=== PATIENT | female | born 1990 | race Caucasian/White ===

== ENCOUNTER 2022-03-18 11:00 | Emergency (ER) | payer BC, SELFPAY ==
[2022-03-18] VITALS (9 sets, daily range): BP systolic 106–127; BP diastolic 65–82; PULSE 79–88; RESP 18; TEMP 36.6; O2SAT 96–99; BMI 41.9
--- NOTE | 2022-03-18 11:36 | ED.CHESTPAIN ---
HPI - Chest Pain General Time Seen by Provider: 11:36 Date Seen: 03/18/22 Chief Complaint: Chest Pain Stated Complaint: chest pain/weakness on left side Time Seen by Provider: 03/18/22 11:36 Source: patient, RN notes reviewed and old records reviewed Mode of arrival: ambulatory Limitations: no limitations History of Present Illness HPI narrative: Patient is a very pleasant 31-year-old female what she states is type 1 diabetes who comes to the emergency room with chest pain. Patient states her chest pain started yesterday and is associated with discomfort radiating into the left arm. She states that also radiates into her neck. She notes worsening of the discomfort when she is walking. She has not had any significant shortness of breath. She denies any recent cough cold congestion. She occasionally has lower extremity edema but it has not been worse than normal. Taking a deep breath does not increase her pain. She has not had this discomfort in the past. She does note that this morning her blood sugar dropped and she had to take some glucose tablets. She tells me that it appears to be dropping again in his at 76. She wishes to have something to eat. No nausea or vomiting diarrhea or recent trauma. MD complaint: chest pain Pertinent past history: other (Diabetes) Onset (ago): day(s) Timing of current episode: still present Onset: during rest Risk Factors Coronary artery disease risk factors: diabetes Related Data On Oral Contraceptives: No Home Medications Medication Instructions Recorded Confirmed insulin NPH isoph U-100 human 100 38 - 42 unit subcut BID 03/18/22 03/18/22 unit/mL subcutaneous suspension (Humulin N NPH U-100 Insulin (isophane susp)) insulin aspart U-100 100 unit/mL 14 unit subcut TID 03/18/22 03/18/22 subcutaneous cartridge Allergies Allergy/AdvReac Type Severity Reaction Status Date / Time metformin AdvReac Intermediate nausea, Verified 03/18/22 11:15 vomiting, abdominal pain, diarrhea Review of Systems Status of ROS Reports: 10 or more systems reviewed and unremarkable except as noted in History and below Const Denies: fever, chills or fatigue Eyes Denies: change in vision or blurry vision ENMT Reports: neck pain; Denies: throat pain or difficulty swallowing Cardio Reports: chest pain; Denies: palpitations, edema or shortness of breath with exertion Resp Denies: shortness of breath or pain on inspiration GI Denies: abdominal pain, nausea, vomiting, diarrhea or difficulty swallowing Denies: painful urination or urinary frequency Musculo Reports: neck pain Integ/Breast Denies: rash Neuro Denies: headache or weakness in extremities Endo Denies: fatigue PFSH PFS Social History Smoking Status: Never smoker Do you use any of these nicotine containing products: None Second hand tobacco smoke exposure: No How often do you have a drink containing alcohol: never How often do you have six or more drinks on one occasion: Never AUDIT-C Alcohol total score: 0 Non-prescribed substance use: denies use Exam Narrative Exam Narrative: According to nursing notes patient initially needs educational interpreter. However when I enter the room she says she does not needed educational interpreter and is able to discuss symptoms. Const Vital Signs, click to edit/add: Vital Signs - 24 hr 03/18/22 11:10 03/18/22 12:00 03/18/22 12:30 Temperature 98 F Pulse Rate [Pulse Oximeter] 84 85 Respiratory Rate 18 Blood Pressure [Right Upper Arm] 121/82 127/79 116/72 Pulse Oximetry 99 96 Oxygen Delivery Method Room Air 03/18/22 13:00 Temperature Pulse Rate [Pulse Oximeter] 84 Respiratory Rate Blood Pressure [Right Upper Arm] 116/78 Pulse Oximetry 98 Oxygen Delivery Method Documenting provider has reviewed patient's vital signs: yes Common normals: no apparent distress and oriented x3 Exam limitations: no altered mental status General appearance: cooperative, comfortable and well kempt [facility] Common normals: normocephalic and head/scalp atraumatic Head and scalp: normocephalic and atraumatic Face and sinus: normal facial exam Eye Common normals: PERRL General eye: normal appearance of both eyes Pupil: PERRL Neck & C-Spine Common normals: full ROM, no lymphadenopathy and supple Other: Point tenderness noted over for lateral left aspect of C7/T1. Positive Spurling sign mild on the left Chest Common normals: inspection of chest normal Resp Common normals: normal respiratory effort and clear to auscultation bilaterally Effort & inspection: able to speak in complete sentences Auscultation: clear to auscultation bilaterally Cardio Common normals: regular rate and regular rhythm Rate: regular rate Rhythm: regular rhythm GI Common normals: soft to palpation and non-tender Palpation: soft Common normals: no CVA tenderness Bladder/kidney exam: no CVA tenderness Back & Pelvis Common normals: no CVA tenderness and no thoracic nor lumbar tenderness Extremity Common normals: normal to inspection and no pedal edema Neuro Common normals: oriented x3 Psych Common normals: mental status grossly normal and thought process normal Appearance: well kempt Thought process: normal thought process Skin Common normals: no rashes or lesions noted General skin exam: no rashes or lesions noted Course Course Hospital Course: Patient agrees to have IV placed and blood work to include cardiac enzymes, CBC, comprehensive panel and urinalysis. Will also check D-dimer, chest x-ray and EKG. Reevaluation(s) Reevaluation #1: Patient notes improvement of her discomfort after initial negative troponin. Patient was given Toradol 15 mg IV. Further examination notes pain over posterior lateral cervical spine at C7/T1. Vital Signs Vital signs: Initial Vital Signs Temperature 98 F 03/18/22 11:10 Temperature Source Temporal Artery Scan 03/18/22 11:10 Pulse Rate 84 03/18/22 11:10 Respiratory Rate 18 03/18/22 11:10 Blood Pressure 121/82 03/18/22 11:10 Blood Pressure Mean 95 03/18/22 11:10 Blood Pressure Position Sitting 03/18/22 11:10 Pulse Oximetry 99 03/18/22 11:10 Oxygen Delivery Method 03/18/22 11:10 Vital Signs Temperature 98 F 03/18/22 11:10 Pulse Rate 84 03/18/22 11:10 Respiratory Rate 18 03/18/22 11:10 Blood Pressure 121/82 03/18/22 11:10 Pulse Oximetry 99 03/18/22 11:10 Oxygen Delivery Method 03/18/22 11:10 Temperature 98 F 03/18/22 11:10 Pulse Rate 84 03/18/22 13:00 Respiratory Rate 18 03/18/22 11:10 Blood Pressure 116/78 03/18/22 13:00 Pulse Oximetry 98 03/18/22 13:00 Oxygen Delivery Method 03/18/22 11:10 MDM - Chest Pain MDM Narrative Medical decision making narrative: 1. Chest pain-troponins are negative x2 and EKGs are reassuring with no evidence of acute ST or T-wave changes. Aspirin 324 mg p.o. was given in the ED while awaiting these tests. 2. Cervical spine discomfort-I believe this is likely the source of patient's chest and left arm discomfort. Spurling sign was positive and patient has localized tenderness on the cervical spine. Patient does agree that in the past she has had upper back and neck spasm. We demonstrated stretches today and suggest icing to this area as well. Follow-up with primary MD if not improving. 3. Type 1 diabetes-patient sees physician outside of this area every 3 months. Last seen 1 week ago. 4. Disposition-home. Recommend returning as needed for worsening symptoms. Medical Records Data Attestation: I reviewed the patient's medical records. Lab Data Attestation: I reviewed the patient's lab results. Labs: Lab Results 03/18/22 03/18/22 03/18/22 Range/Units 11:50 11:55 11:55 WBC 9.11 (4.50-11.00) K/uL RBC 4.94 (4.00-5.20) m/uL Hgb 14.0 (12.0-16.0) gm/dL Hct 40.1 (33.0-51.0) % MCV 81 (80-100) fL MCH 28 (26-34) pg MCHC 35 (32-36) gm/dL RDW Coeff of Shaun 13.0 (11.5-15.5) % Plt Count 326 (140-440) K/uL Neut % (Auto) 67.0 (42.0-72.0) % Lymph % (Auto) 22.9 (20-44) % [place] % (Auto) 7.5 (0.0-11.0) % Eos % (Auto) 2.1 (0.0-7.0) % Baso % (Auto) 0.2 (0.0-3.0) % Neut # (Auto) 6.10 (1.7-7.0) K/uL Lymph # (Auto) 2.09 (0.90-2.90) K/uL [place] # (Auto) 0.70 (0.00-0.90) K/UL Eos # (Auto) 0.19 (0.00-0.50) K/uL Baso # (Auto) 0.02 (0.00-0.30) K/uL Abs Immat Gran (auto) 0.03 (0.00-0.30) K/uL D-Dimer Quant (PE/DVT) < 0.27 (0.00-0.50) ug/ml Sodium (135-149) mmol/L Potassium (3.6-5.1) mmol/L Chloride (96-114) mmol/L Carbon Dioxide (20-32) mmol/L BUN (5-24) mg/dL Creatinine (0.5-1.5) mg/dL Estimated Creat Clear Estimated GFR ml/min Glucose (60-115) mg/dL Calcium (8.4-10.6) mg/dL Total Bilirubin (0.1-1.5) mg/dL AST (12-35) U/L ALT (4-35) U/L Alkaline Phosphatase (40-150) U/L Troponin I (0.01-0.04) ng/mL Total Protein (6.0-8.3) g/dL Albumin (3.3-5.0) g/dL SARS-CoV-2 (PCR) Negative SARS-CoV-2 (Negative) Influenza Type A (PCR) Negative PCR FLU A (Negative) Influenza Type B (PCR) Negative PCR FLU B (Negative) POC Troponin I (0.01-0.04) ng/ml 03/18/22 03/18/22 Range/Units 11:55 13:40 WBC (4.50-11.00) K/uL RBC (4.00-5.20) m/uL Hgb (12.0-16.0) gm/dL Hct (33.0-51.0) % MCV (80-100) fL MCH (26-34) pg MCHC (32-36) gm/dL RDW Coeff of Shaun (11.5-15.5) % Plt Count (140-440) K/uL Neut % (Auto) (42.0-72.0) % Lymph % (Auto) (20-44) % [place] % (Auto) (0.0-11.0) % Eos % (Auto) (0.0-7.0) % Baso % (Auto) (0.0-3.0) % Neut # (Auto) (1.7-7.0) K/uL Lymph # (Auto) (0.90-2.90) K/uL [place] # (Auto) (0.00-0.90) K/UL Eos # (Auto) (0.00-0.50) K/uL Baso # (Auto) (0.00-0.30) K/uL Abs Immat Gran (auto) (0.00-0.30) K/uL D-Dimer Quant (PE/DVT) (0.00-0.50) ug/ml Sodium 137 (135-149) mmol/L Potassium 3.7 (3.6-5.1) mmol/L Chloride 105 (96-114) mmol/L Carbon Dioxide 26 (20-32) mmol/L BUN 17 (5-24) mg/dL Creatinine 0.4 L (0.5-1.5) mg/dL Estimated Creat Clear 177.59 Estimated GFR 136 ml/min Glucose 104 (60-115) mg/dL Calcium 8.7 (8.4-10.6) mg/dL Total Bilirubin 0.4 (0.1-1.5) mg/dL AST 45 H (12-35) U/L ALT 57 H (4-35) U/L Alkaline Phosphatase 116 (40-150) U/L Troponin I < 0.01 L (0.01-0.04) ng/mL Total Protein 7.9 (6.0-8.3) g/dL Albumin 4.3 (3.3-5.0) g/dL SARS-CoV-2 (PCR) (Negative) Influenza Type A (PCR) (Negative) Influenza Type B (PCR) (Negative) POC Troponin I 0.00 L (0.01-0.04) ng/ml Imaging Data Chest x-ray: Attestation: I have reviewed the pertinent imaging results. My impression: No acute infiltrates or widening of the mediastinum. Radiologist's impression: Lungs: Clear lungs. No consolidation. Pleura: No pleural effusion or pneumothorax. Heart and Mediastinum: The cardiomediastinal silhouette is normal. The vessels are unremarkable. Bones: Unremarkable. IMPRESSION: No acute cardiopulmonary disease. ECG Data Attestation: I personally reviewed and interpreted this ECG as follows: ECG interpretation date: 03/18/22 Interpretation: EKG 1. By my read shows sinus rhythm at a rate of 81. Normal QT corrected. No acute ST or T-wave changes. EKG 2. By my read shows sinus rhythm at a rate of 86. No acute ST or T-wave changes. Discharge Plan Discharge Clinical Impression: Atypical chest pain Patient Disposition: Home, Self-Care Condition: Improved Additional Instructions: Gentle stretching to the neck. Icing to area of discomfort. You may use ibuprofen as needed for discomfort. Seek medical attention for worsening symptoms. Return to the ER as needed. Prescriptions: No Action Humulin N NPH U-100 Insulin 100 unit/mL suspension 38 - 42 unit subcut BID Label Comments: 38 Units AM dose 42 Units PM dose insulin aspart U-100 100 unit/mL cartridge 14 unit subcut TID Label Comments: 14 units + sliding scale adjustment TID Follow Up/Referrals: Olivia Dubose DO [Primary Care Provider] - Stand Alone Forms: MyHealth Info Instructions
--- NOTE | 2022-03-18 11:43 | CRLHL7_ITS ---
For Patients: As a result of the Cures Act, medical imaging exams and procedure reports are released immediately into your electronic medical record. You may view this report before your referring provider. If you have questions, please contact your health care provider. INDICATION: Chest pain. TECHNIQUE: Chest 1 views. COMPARISON: None. FINDINGS: Lungs: Clear lungs. No consolidation. Pleura: No pleural effusion or pneumothorax. Heart and Mediastinum: The cardiomediastinal silhouette is normal. The vessels are unremarkable. Bones: Unremarkable. IMPRESSION: No acute cardiopulmonary disease. Dictated by River Alcantar MD @ 03/18/2022 12:40:15 PM (Electronically Signed)
[2022-03-18] MEDS: ASPIRIN 81 MG TAB.CHEW 324 MG PO (11:44)
[2022-03-18 12:19] LABS: Basophils Absolute Auto 0.02 K/uL (0.00-0.30); Basophils Percent Auto 0.2 % (0.0-3.0); Eosinophils Absolute Auto 0.19 K/uL (0.00-0.50); Eosinophils Percent Auto 2.1 % (0.0-7.0); Hematocrit 40.1 % (33.0-51.0); Immature Granulocytes Abs Auto 0.03 K/uL (0.00-0.30); Lymphocytes Absolute Auto 2.09 K/uL (0.90-2.90); Lymphocytes Percent Auto 22.9 % (20-44); Mean Corpuscular HGB Conc 35 gm/dL (32-36); Mean Corpuscular Hemoglobin 28 pg (26-34); Mean Corpuscular Volume 81 fL (80-100); Monocytes Percent Auto 7.5 % (0.0-11.0); Platelet Count* 326 K/uL (140-440); Red Blood Count 4.94 m/uL (4.00-5.20); White Blood Count* 9.11 K/uL (4.50-11.00)
[2022-03-18 12:22] LABS: Slide Review Reflex No
[2022-03-18 12:40] LABS: Albumin* 4.3 g/dL (3.3-5.0); Chloride* 105 mmol/L (96-114); Potassium* 3.7 mmol/L (3.6-5.1); Sodium* 137 mmol/L (135-149)
[2022-03-18 12:42] LABS: Creatinine* 0.4 mg/dL (0.5-1.5); Est. Creatinine Clearance* 177.59; Estimated Glomerular Filt Rate 136 ml/min
[2022-03-18 12:43] LABS: Alanine Aminotransferase* 57 U/L (4-35); Alkaline Phosphatase* 116 U/L (40-150); Aspartate Amino Transferase* 45 U/L (12-35); Bilirubin Total* 0.4 mg/dL (0.1-1.5); Blood Urea Nitrogen* 17 mg/dL (5-24); Carbon Dioxide* 26 mmol/L (20-32); Glucose* 104 mg/dL (60-115); Total Protein* 7.9 g/dL (6.0-8.3)
[2022-03-18 12:44] LABS: Calcium* 8.7 mg/dL (8.4-10.6)
[2022-03-18 12:47] LABS: D Dimer Quantitative* < 0.27 ug/ml (0.00-0.50)
[2022-03-18 12:55] LABS: PCR FLU A Negative PCR FLU A (Negative); PCR FLU B Negative PCR FLU B (Negative)
[2022-03-18 13:02] LABS: SARS PCR* Negative SARS-CoV-2 (Negative)
[2022-03-18 13:05] LABS: Troponin I* < 0.01 ng/mL (0.01-0.04)
[2022-03-18] MEDS: KETOROLAC 15 MG/ML inj IVP (13:16)
== END 2022-03-18 15:47 | disposition home or self-care (01) ==
PROVIDERS: Emergency Provider Family Medicine; PCP Family Medicine
DX: R07.9 Chest pain, unspecified (principal); E10.9 Type 1 diabetes mellitus without complications; M54.2 Cervicalgia
CPT/HCPCS: 36415; 71045; 80053; 84484; 85025; 85379; 87631; 93005; 96374; 99284; 99285; A9270; J1885

== ENCOUNTER 2023-07-09 14:38 | Outpatient (CLI) | payer BC, SELFPAY | END 2023-07-09 14:39 | disposition home or self-care (01) | LOC: AMB 07-10 05:45 | PROVIDERS: PCP Family Medicine; Visit Provider Family Medicine | DX: E11.65 Type 2 diabetes mellitus with hyperglycemia (principal) | CPT/HCPCS: A0425; A0427 ==

== ENCOUNTER 2023-07-09 15:04 | Inpatient (IN) | payer BC, SELFPAY ==
[2023-07-09] VITALS (8 sets, daily range): BP systolic 102–123; BP diastolic 66–87; PULSE 98–127; RESP 20–28; TEMP 36.4–36.9; O2SAT 98–100; BMI 42.2; BMI 37.8
--- NOTE | 2023-07-09 15:17 | ED.GENADULT ---
HPI - General Adult General Chief complaint: Diabetic Related Problem Stated complaint: Diabetic ketoacidosis Time Seen by Provider: 07/09/23 15:08 History of Present Illness HPI narrative: This is a pleasant 32-year-old female who was referred to the emergency department today from the urgent care for evaluation of hyperglycemia and suspected diabetic ketoacidosis. She is a type 1 diabetic. According to the urgent care she ran out of her insulin a couple of days ago and then says, ?I can not remember. ? Subsequently, according to the Urgent Care notes it turns out she has been out of her insulin for about a week. She has been sick with nausea, vomiting, dizziness, blurry vision since yesterday. She has also had polydipsia and polyuria. She checked her blood sugar prior to going to the urgent care and it measured at 290. one day earlier this week it measured at 500. Her emesis has been nonbloody. It has been yellow and sour tasting. Is been ongoing for a couple of days. She has also been feeling short of breath. She has had a cold since last Wednesday. Her aunt had COVID. She tested at home today and tested negative within at home test. No fevers. No chest pain. She has had multiple episodes of nonbilious, nonbloody emesis. No diarrhea. No abdominal pain. No swelling in her legs. No rash. She has had previous hysterectomy so cannot be . She ran out of her NPH insulin about a week ago and ran out of her NovoLog incident in of roughly 2 or 3 days ago. She says her normal regimen of her insulin is NPH 40 units in the morning and 44 units in the evening. She takes no log on a sliding scale, typically 22-24 units, but her dose depends on her blood sugar. 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 She does not know her doctor's name. Their phone number is [phone]. She normally gets her insulin through [employer] because they have a special program that makes that affordable for her. She has Blue [employer] insurance but that does not cover her medication. Related Data Home Medications Medication Instructions Recorded Confirmed insulin NPH isoph U-100 human 100 38 - 42 unit subcut BID 03/18/22 07/09/23 unit/mL subcutaneous suspension (Humulin N NPH U-100 Insulin (isophane susp)) insulin aspart U-100 100 unit/mL 14 unit subcut TID 03/18/22 07/09/23 subcutaneous cartridge Allergies Allergy/AdvReac Type Severity Reaction Status Date / Time metformin AdvReac Intermediate nausea, Verified 03/18/22 11:15 vomiting, abdominal pain, diarrhea [facility] Social History Smoking Status: Never smoker Do you use any of these nicotine containing products: None Second hand tobacco smoke exposure: No How often do you have a drink containing alcohol: never How often do you have six or more drinks on one occasion: Never AUDIT-C Alcohol total score: 0 Non-prescribed substance use: denies use Exam Narrative: Exam Narrative: Constitutional: Appears well-developed and well-nourished. Alert. Conversant through an iPad [place] resource protection specialist. Non toxic. HENT: Head: Atraumatic. Nose: Nose normal. Mouth/Throat: Oral mucosa is clear but dry, not desiccated or cracked. no trismus. Pharynx normal. Eyes: Conjunctivae normal. EOM normal. Pupils equal, round, and reactive to light. No scleral icterus. Neck: Normal range of motion. Neck supple. No tracheal deviation present. Cardiovascular: Tachycardic regular rhythm. No gallop. No friction rub. No murmur heard. Symmetric radial artery pulses Pulmonary/Chest: Effort normal. No stridor. No respiratory distress. No wheezes. No rales. No rhonchi . No tenderness. Abdominal: Soft. Bowel sounds normal. No distension. No mass. No tenderness. No rebound. No guarding. No CVA tenderness. Musculoskeletal: RUE: Normal range of motion. No tenderness. No deformity LUE: Normal range of motion. No tenderness. No deformity RLE: Normal range of motion. No edema. No tenderness. No deformity LLE: Normal range of motion. No edema. No tenderness. No deformity Neurological: Alert and oriented to person, place, and time. Normal strength. CN II-VII intact. No sensory deficit. GCS eye subscore is 4. GCS verbal subscore is 5. GCS motor subscore is 6. Normal coordination Skin: Skin is warm and dry. No rash noted. No pallor. Normal capillary refill. Psychiatric: Endorses feeling nervous and anxious. Otherwise is polite. Denies depression Const: Vital Signs, click to edit/add: Vital Signs - 24 hr 07/09/23 15:11 07/09/23 15:26 Temperature 97.6 F Pulse Rate [Pulse Oximeter] 105 H Respiratory Rate 22 Blood Pressure [Le ft Upper Arm] 114/87 Pulse Oximetry 100 100 Oxygen Delivery Me thod Room Air Course Vital Signs Vital signs: Initial Vital Signs Temperature 97.6 F 07/09/23 15:11 Temperature Source Temporal Artery Scan 07/09/23 15:11 Pulse Rate 105 H 07/09/23 15:11 Respiratory Rate 22 07/09/23 15:11 Blood Pressure 114/87 07/09/23 15:11 Blood Pressure Mean 96 07/09/23 15:11 Blood Pressure Position Supine 07/09/23 15:11 Pulse Oximetry 100 07/09/23 15:11 Oxygen Delivery Method Room Air 07/09/23 15:11 Vital Signs Temperature 97.6 F 07/09/23 15:11 Pulse Rate 105 H 07/09/23 15:11 Respiratory Rate 22 07/09/23 15:11 Blood Pressure 114/87 07/09/23 15:11 Pulse Oximetry 100 07/09/23 15:11 Oxygen Delivery Method Room Air 07/09/23 15:11 Temperature 97.6 F 07/09/23 15:11 Pulse Rate 105 H 07/09/23 15:11 Respiratory Rate 07/09/23 15:11 Blood Pressure 114/87 07/09/23 15:11 Pulse Oximetry 100 07/09/23 15:26 Oxygen Delivery Method Room Air 07/09/23 15:11 Medications Administered Medications: Generic Name Dose Route Start Last Admin Trade Name Freq PRN Reason Stop Dose Admin Insulin Human (Reg)/Sodium Chloride 100 unit in 100 mls @ 11 mls/hr 07/09/23 16:45 07/09/23 16:48 Insulin Inf 100 Unit/100 Ml IVPB 11 unit/hr .Q9H6M MERVAT 11 mls/hr Administration 11 UNIT/HR Insulin Human (Reg)/Sodium Chloride 100 unit in 100 mls @ 5 mls/hr 07/09/23 17:45 07/09/23 18:34 Insulin Inf 100 Unit/100 Ml IVPB 10.5 unit/hr .Q20H MERVAT 10.5 mls/hr Administration Protocol 5 UNIT/HR Discontinued Medications Generic Name Dose Route Start Last Admin Trade Name Noble PRN Reason Stop Dose Admin Sodium Chloride 1,000 mls @ 1,000 mls/hr 07/09/23 15:15 07/09/23 16:02 0.9 % Sodium Chloride 1000 Ml IV 07/09/23 16:14 1,000 mls/hr .Q1H MERVAT Administration Ondansetron HCl 4 mg 07/09/23 16:24 07/09/23 16:49 Ondansetron 2 Mg/Ml Inj IVP 07/09/23 16:25 4 mg ONCE ONE Administration Medical Decision Making MDM Narrative Medical decision making narrative: 32-year-old female with insulin-dependent diabetes referred to the ER today from the urgent care with concern for possible DKA. Shear is ran out of her long-acting insulin about a week ago and her short-acting insulin and a couple of days ago and has symptoms indicative of hyperglycemia including nausea, vomiting, headache, blurry vision, polyuria, polydipsia. Lab workup in the urgent care showed sugar greater than 500, appropriately low sodium at 1:30 a.m.. Fortunately no sign of kidney failure. She also had hyperkalemia. Urinalysis was positive for ketones, glucosuria, and protein but negative for infection. Additional lab work here in the ER shows a acidosis with a pH fairly low at 7.03. PCO2 also low at 31. Suggestive of DKA. Suspect that the trigger for DKA is absence of insulin this week. She simply ran out of meds due to financial reasons. Incidentally she has also had a cold that began 6 days ago, last Wednesday. She tested negative for coronavirus at home. Repeat COVID/influenza/RSV swab here in the ER is positive. She has also had a recent cold and URI. She is not having any cough here. No hypoxia. She is positive for COVID. Symptoms began last Wednesday so would be outside the window for Paxlovid. Lung sounds are clear. No wheezing or bronchospasm. No focal abnormality to suggest pneumonia. Patient has had previous a hysterectomy, so cannot be . Restarted treatment for DKA including IV fluids and insulin drip based on weight. At this point she has blurry vision, nausea, mild headache but normal sensorium and no focal neurologic deficits. No evidence for cerebral edema. Clinically she looks pretty well at the bedside. She will be admitted to the critical care unit for insulin drip, IV fluids. Lab Data Labs: Lab Results 07/09/23 07/09/23 07/09/23 Range/Units 15:21 16:00 16:43 VBG pH 7.035 L* (7.32-7.43) VBG pCO2 31 L (40-50) mmHG VBG pO2 38.9 (25-47) mmHG VBG HCO3 8 L (21-28) mmol/L Sodium 135 (135-149) mmol/L Potassium 6.2 H* (3.6-5.1) mmol/L Chloride 101 (96-114) mmol/L Carbon Dioxide < 5 L* (20-32) mmol/L Anion Gap 29 H (7-15) mEq/L BUN 15 (5-24) mg/dL Creatinine 0.8 (0.5-1.5) mg/dL Estimated Creat Clear 87.99 Estimated GFR 101 ml/min Glucose 547 H* (60-115) mg/dL Lactate 2.6 H (0.5-1.9) mmol/L Calcium 9.2 (8.4-10.6) mg/dL Phosphorus 6.7 H* (2.5-4.5) mg/dL Magnesium 2.3 (1.5-2.6) mg/dL Urine Color Yellow (Yellow) Urine Appearance Clear (Clear) Urine pH 5.0 (5.0-8.5) Ur Specific [place] 1.025 (1.000-1.030) Urine Protein 2+ A (Negative) Urine Glucose (UA) 2+ A (Negative) Urine Ketones 4+ A (Negative) Urine Blood 1+ A (Negative) Urine Nitrite Negative (Negative) Urine Bilirubin 1+ A (Negative) Urine Urobilinogen 0.2 (0.2-1.0) Ur Leukocyte Esterase Negative (Negative) Urine RBC 0-2 (0-2) Urine WBC 0-2 (0-5) Urine WBC Clumps None (None) Ur Squamous Epith Cells None (None-Few) Urine Bacteria Few A (None) SARS-CoV-2 (PCR) POSITIVE SARS-CoV-2 A (Negative) Influenza Type A (PCR) Negative PCR FLU A (Negative) Influenza Type B (PCR) Negative PCR FLU B (Negative) RSV (PCR) Negative PCR RSV (Negative) ECG Data Attestation: I personally reviewed and interpreted this ECG as follows: Interpretation: Sinus tachycardia. Rate 105 MS 136. QRS axis normal axis. Low voltage QRS ST segment/T wave: No ST segment elevation or depression. QTc: 473 Critical Care Time Critical Care Time Critical Care Time: Yes Attestation: The patient required my highest level preparedness to intervene emergently and I personally spent this critical care time directly and personally managing the patient. This critical care time included: Obtaining a history; Examining the patient; Pulse oximetry; Ordering and reviewing of studies; Arranging urgent treatment with development of a management plan; Evaluation of patients response to treatment; Frequent reassessment discussions with other providers. This critical care time was performed to assess and manage the high probability of imminent life-threatening deterioration that could result in multiorgan failure. It was exclusive of separate billable procedures and treating other patients and teaching time. Total Critical Care Time in Minutes: 35 Discharge Plan Discharge Clinical Impression: DKA (diabetic ketoacidosis), COVID-19 Patient Disposition: Admitted As Observation Condition: Guarded
[2023-07-09 15:50] LABS: Appearance Urine Clear (Clear); Bilirubin Urine 1+ (Negative); Blood Urine 1+ (Negative); Color Urine Yellow (Yellow); Glucose Urine 2+ (Negative); Ketones Urine 4+ (Negative); Leukocyte Esterase Urine Negative (Negative); Nitrite Urine Negative (Negative); Protein Urine 2+ (Negative); Specific Gravity Urine 1.025 (1.000-1.030); Urobilinogen Urine 0.2 (0.2-1.0)
[2023-07-09 16:02] LABS: Bacteria Urine Few; RBC Urine 0-2 (0-2); WBC Urine 0-2 (0-5)
[2023-07-09] MEDS: 0.9 % SODIUM CHLORIDE 1000 ml 1,000 ML IV (16:02)
[2023-07-09 16:11] LABS: HCO3 VBG 8 mmol/L (21-28); Lactate* 2.6 mmol/L (0.5-1.9); PCO2 VBG 31 mmHG (40-50); PO2 VBG 38.9 mmHG (25-47)
[2023-07-09 16:14] LABS: pH VBG 7.035 (7.32-7.43)
--- NOTE | 2023-07-09 16:15 | ED.NURSE ---
dr stinson aware of critical labs. pH 7.035, Hco3 8, pCo2-31.
[2023-07-09 16:27] LABS: Chloride* 101 mmol/L (96-114)
[2023-07-09 16:28] LABS: Sodium* 135 mmol/L (135-149)
[2023-07-09 16:30] LABS: Creatinine* 0.8 mg/dL (0.5-1.5); Est. Creatinine Clearance* 87.99; Estimated Glomerular Filt Rate 101 ml/min
[2023-07-09 16:31] LABS: Blood Urea Nitrogen* 15 mg/dL (5-24); Calcium* 9.2 mg/dL (8.4-10.6); Magnesium* 2.3 mg/dL (1.5-2.6)
[2023-07-09 16:37] LABS: Potassium* 6.2 mmol/L (3.6-5.1)
[2023-07-09 16:38] LABS: Anion Gap 29 mEq/L (7-15); Carbon Dioxide* < 5 mmol/L (20-32); Glucose* 547 mg/dL (60-115); Phosphorus* 6.7 mg/dL (2.5-4.5)
[2023-07-09] MEDS: INSULIN INF 100 UNIT/100 ML 100 UNIT/100 ML BAG 11 UNIT IVPB ×2 (16:48→17:45)
[2023-07-09] MEDS: ONDANSETRON 2 MG/ML inj 4 MG IVP ×2 (16:49→21:04)
[2023-07-09 17:26] LABS: PCR FLU A Negative PCR FLU A (Negative); PCR FLU B Negative PCR FLU B (Negative); PCR RSV Negative PCR RSV (Negative); SARS PCR* POSITIVE SARS-CoV-2 (Negative)
--- NOTE | 2023-07-09 17:33 | PC.NURSE ---
Report given to m/s RN. Patient to CCU via wheelchair.
[2023-07-09] MEDS: INSULIN INF 100 UNIT/100 ML 100 UNIT/100 ML BAG 10.5 UNIT IVPB (18:34)
[2023-07-09 18:45] LABS: HCO3 VBG 8 mmol/L (21-28); Lactate* 2.8 mmol/L (0.5-1.9); PCO2 VBG 31 mmHG (40-50); PO2 VBG 30.3 mmHG (25-47)
[2023-07-09 18:51] LABS: Chloride* 109 mmol/L (96-114)
[2023-07-09 18:52] LABS: Potassium* 4.7 mmol/L (3.6-5.1); Sodium* 141 mmol/L (135-149)
[2023-07-09 18:54] LABS: Creatinine* 0.7 mg/dL (0.5-1.5); Est. Creatinine Clearance* 100.55; Estimated Glomerular Filt Rate 119 ml/min; Phosphorus* 5.1 mg/dL (2.5-4.5)
[2023-07-09 18:55] LABS: Blood Urea Nitrogen* 14 mg/dL (5-24); Calcium* 9.1 mg/dL (8.4-10.6); Glucose* 320 mg/dL (60-115); Magnesium* 2.2 mg/dL (1.5-2.6)
[2023-07-09 18:59] LABS: Anion Gap 27 mEq/L (7-15); Carbon Dioxide* < 5 mmol/L (20-32)
[2023-07-09 19:11] LABS: pH VBG 7.008 (7.32-7.43)
[2023-07-09 19:12] LABS: HCG Quantitative* < 2.39 mIU/mL
--- NOTE | 2023-07-09 19:32 | P.IMHP_ITS ---
Hospitalist- H&P: HPI History of Present Illness Time Seen by Provider: 16:45 Date Seen: 07/09/23 Chief complaint: Diabetic ketoacidosis Narrative: Bella Mcdonald is a 32 year old female with DM type 1 who has been sick with vomiting and blurry vision since early this morning. She is [place] speaking, so I spoke with her and her mother, Reanna, with a video parts interpreter. Bella ran out of NPH a week ago and short acting insulin a few days ago. She got her p aycheck today and intended to get insulin refilled today, but started vomiting early this morning. She also feels very weak and has blurry vision, headache and abdominal pain. She notes that her blood sugars have been in the 200-300's recently, since she started having URI symptoms last Wednesday. She has felt congested and has SOB. She denies CP. She had been seeing an school fundraising director in [facility] (the ER record states [place]; she told me [facility]). who prescribed insulin for her. She tells me she last saw the physician a year ago and no longer has access to that physician. Review of Systems Status of ROS: Reports: 10 or more systems reviewed and unremarkable except as noted in History and below Const: Reports: fatigue and malaise; Denies: fever, chills, change in weight or night sweats Eyes: Reports: blurry vision ENMT: Reports: dry mouth and nasal congestion Cardio: Reports: shortness of breath with exertion; Denies: chest pain, palpitations or edema Resp: Reports: shortness of breath; Denies: cough or wheezing GI: Reports: abdominal pain, nausea and vomiting Musculo: Reports: muscle weakness Integ/Breast: Denies: rash Neuro: Reports: headache Endo: Reports: excessive urination, excessive thirst, fatigue and cold intolerance Allergy/Immuno: Denies: wheezing [facility] Medical History (Updated 07/09/23 @ 20:05 by Norma Villa MD) Pre-eclampsia ?O14.90 - Unspecified pre-eclampsia, unspecified trimester (ICD-10) Type 1 diabetes mellitus (~06/2018) ?E10.9 - Type 1 diabetes mellitus without complications (ICD-10) Surgical History (Updated 07/09/23 @ 19:51 by Norma Villa MD) H/O: hysterectomy ?Z90.710 - Acquired absence of both cervix and uterus (ICD-10) Social History (Updated 07/09/23 @ 19:52 by Norma Villa MD) Narrative: Works at [employer]. Never smoker. Drinks alcohol 2-3 times a year. None since . Denies recreational drug use. Smoking Status: Never smoker Do you use any of these nicotine containing products: None Second hand tobacco smoke exposure: No How often do you have a drink containing alcohol: never How often do you have six or more drinks on one occasion: Never AUDIT-C Alcohol total score: 0 Non-prescribed substance use: denies use Meds Home Medications and Allergies Home Medications Medication Instructions Recorded Confirmed Type insulin NPH isoph U-100 human 100 38 - 42 unit subcut BID 03/18/22 07/09/23 History unit/mL subcutaneous suspension (Humulin N NPH U-100 Insulin (isophane susp)) insulin aspart U-100 100 unit/mL 14 unit subcut TID 03/18/22 07/09/23 History subcutaneous cartridge Allergies Allergy/AdvReac Type Severity Reaction Status Date / Time metformin AdvReac Intermediate nausea, Verified 03/18/22 11:15 vomiting, abdominal pain, diarrhea Exam Narrative: Exam Narrative: General: No acute distress. Awake alert oriented x3. Obese. HEENT: Normocephalic atraumatic, pupils equally round and reactive to light and accommodation. Oropharynx clear. Mucous membranes are very dry. No cervical lymphadenopathy, thyromegaly or carotid bruits. No JVD. Cardiovascular: Tachycardic, regular. No murmurs, gallops, or rubs. Chest: Mildly tachypneic. Clear to auscultation bilaterally. No crackles or wheezes. Abdomen: Bowel sounds present. Soft, nondistended, nontender. No hepatosplenomegaly or masses. Extremities: No edema, no cyanosis or clubbing. Skin: Dry. No jaundice, no pallor, no rashes. Neuro: Grossly intact. No focal deficits. Const: Vital Signs, click to edit/add: Vital Signs - 24 hr 07/09/23 15:11 07/09/23 15:26 Temperature 97.6 F Pulse Rate [Pulse Oximeter] 105 H Respiratory Rate 22 Blood Pressure [Le ft Upper Arm] 114/87 Pulse Oximetry 100 100 Oxygen Delivery Me thod Room Air Hospitalist - H&P: Result Labs Labs: BMP 07/09/23 07/09/23 16:00 18:20 Sodium 135 141 Potassium 6.2 H* 4.7 Chloride 101 109 Carbon Dioxide < 5 L* < 5 L* BUN 15 14 Creatinine 0.8 0.7 Glucose 547 H* 320 H Calcium 9.2 9.1 Urine 07/09/23 Range/Units 15:21 Urine Color Yellow (Yellow) Urine Appearance Clear (Clear) Urine pH 5.0 (5.0-8.5) Ur Specific [place] 1.025 (1.000-1.030) Urine Protein 2+ A (Negative) Urine Glucose (UA) 2+ A (Negative) Assessment and Plan Assessment and plan (1) DKA (diabetic ketoacidosis): Problem comment: - I think she likely went into DKA from a combination of COVID illness which caused hyperglycemia and required her to use more insulin than she usually does, therefore causing her to run out of insulin early along with a financial component. - admitting to CCU for insulin drip and management. - Acidotic with pH just greater than 7, not requiring bicarb at this time. Continue to monitor labs Q 2 hours for now. - potassium was elevated at 6.2. EKG reviewed. Potassium is now 4.7 and will likely continue to drop quickly as we continue to treat her with insulin. Change IVF to include potassium now. - patient still appears clinically dry and as an elevated lactate for which I will give 2 more L IV fluid boluses. - pediatric social worker consult for difficulty paying for insulin. Status: Acute (2) Type 1 diabetes mellitus: Problem comment: Diagnosed approximately 5 years ago. She was hospitalized at the time of diagnosis and again for DKA about 3 years ago. Status: Acute (3) COVID-19: Problem comment: She has had symptoms for 6 days, so she is not a candidate for paxlovid or remdesivir. Start covid precautions. She is not hypoxic. Status: Acute (4) Elevated lactic acid level: Status: Acute (5) Hyperkalemia: Problem comment: Secondary to DKA Status: Acute (6) Hypovolemia dehydration: Problem comment: Secondary to DKA Status: Acute Plan Critical care time is 80 minutes total for interview, exam, review of diagnostics, labs, ongoing management and care for DKA requiring insulin drip.
[2023-07-09] MEDS: LACTATED RINGERS 1000 ML 1,000 ML IV ×2 (19:51→20:53)
[2023-07-09 20:03] LABS: Troponin I* < 0.01 ng/mL (0.01-0.04)
[2023-07-09 20:08] LABS: HCO3 VBG 8 mmol/L (21-28); Lactate* 2.3 mmol/L (0.5-1.9); PCO2 VBG 29 mmHG (40-50); PO2 VBG 31.7 mmHG (25-47)
[2023-07-09 20:13] LABS: pH VBG 7.058 (7.32-7.43)
[2023-07-09 20:21] LABS: Chloride* 111 mmol/L (96-114); Potassium* 4.1 mmol/L (3.6-5.1); Sodium* 141 mmol/L (135-149)
[2023-07-09 20:24] LABS: Blood Urea Nitrogen* 13 mg/dL (5-24); Creatinine* 0.6 mg/dL (0.5-1.5); Est. Creatinine Clearance* 117.31; Estimated Glomerular Filt Rate 123 ml/min
[2023-07-09 20:25] LABS: Calcium* 8.4 mg/dL (8.4-10.6); Glucose* 142 mg/dL (60-115)
[2023-07-09 20:26] LABS: Anion Gap 25 mEq/L (7-15); Carbon Dioxide* < 5 mmol/L (20-32)
[2023-07-09] MEDS: ACETAMINOPHEN 325 MG TABLET 650 MG PO (20:34)
[2023-07-09] MEDS: 5 % DEX/0.9 SOD CHL+KCL 20 mEq 1,000 ML 125 ML IV (20:48)
[2023-07-09] MEDS: ENOXAPARIN 40 MG/0.4 ML INJ SUBCUT (20:53)
[2023-07-09] MEDS: SODIUM CHLORIDE 0.9 % (FLUSH) 10 ML SYRINGE 5 ML IVF (20:54)
--- NOTE | 2023-07-09 22:04 | CRLHL7_ITS ---
For Patients: As a result of the Century Cures Act, medical imaging exams and procedure reports are released immediately into your electronic medical record. You may view this report before your referring provider. If you have questions, please contact your health care provider. INDICATION: Increased respirations and heart rate. TECHNIQUE: Chest 1 view. COMPARISON: 03/18/2022. FINDINGS: Cardiovascular and mediastinum: Heart size and vasculature are normal in caliber and appearance. Lungs and pleural spaces: Lungs are clear. No sign of infiltrate or mass. No sign of pleural effusion. No pneumothorax. Bones and soft tissues: No significant findings. IMPRESSION: Negative chest. Dictated by Orestes Obrien MD @ 07/09/2023 10:33:00 PM (Electronically Signed)
[2023-07-09 22:12] LABS: HCO3 VBG 9 mmol/L (21-28); Lactate* 1.2 mmol/L (0.5-1.9); PCO2 VBG 22 mmHG (40-50); PO2 VBG 75.3 mmHG (25-47)
[2023-07-09 22:16] LABS: pH VBG 7.221 (7.32-7.43)
[2023-07-09 22:28] LABS: Chloride* 111 mmol/L (96-114); Sodium* 135 mmol/L (135-149)
[2023-07-09 22:29] LABS: Potassium* 4.1 mmol/L (3.6-5.1)
[2023-07-09 22:31] LABS: Creatinine* 0.5 mg/dL (0.5-1.5); Est. Creatinine Clearance* 140.78; Estimated Glomerular Filt Rate 129 ml/min
[2023-07-09 22:32] LABS: Anion Gap 18 mEq/L (7-15); Calcium* 7.7 mg/dL (8.4-10.6); Glucose* 110 mg/dL (60-115)
[2023-07-09 22:41] LABS: Carbon Dioxide* 6 mmol/L (20-32)
[2023-07-09 22:48] LABS: Blood Urea Nitrogen* 11 mg/dL (5-24)
[2023-07-10] VITALS (11 sets, daily range): BP systolic 103–133; BP diastolic 68–82; PULSE 82–102; RESP 16–26; TEMP 36.4–36.9; O2SAT 96–99
[2023-07-10 00:46] LABS: HCO3 VBG 12 mmol/L (21-28); PCO2 VBG 28 mmHG (40-50); PO2 VBG 62.1 mmHG (25-47)
[2023-07-10 00:53] LABS: pH VBG 7.237 (7.32-7.43)
[2023-07-10 01:02] LABS: Chloride* 108 mmol/L (96-114); Potassium* 4.1 mmol/L (3.6-5.1); Sodium* 129 mmol/L (135-149)
[2023-07-10 01:04] LABS: Creatinine* 0.4 mg/dL (0.5-1.5); Est. Creatinine Clearance* 175.97; Estimated Glomerular Filt Rate 136 ml/min
[2023-07-10 01:05] LABS: Anion Gap 12 mEq/L (7-15); Blood Urea Nitrogen* 10 mg/dL (5-24); Calcium* 7.5 mg/dL (8.4-10.6); Glucose* 250 mg/dL (60-115)
[2023-07-10 01:11] LABS: Carbon Dioxide* 9 mmol/L (20-32)
[2023-07-10] MEDS: ACETAMINOPHEN 325 MG TABLET 650 MG PO ×2 (02:00→09:19)
[2023-07-10] MEDS: 5 % DEX/0.9 SOD CHL+KCL 20 mEq 1,000 ML 150 ML IV ×3 (03:30→17:05)
--- NOTE | 2023-07-10 05:29 | PC.NURSE ---
[id number]: Patient cooperative with cares. Fatigued. SBA w/IV pole. C/o headache 4-910 pain. Tylenol administered per PRN protocol and ice offered for mild relief. Followed Insulin drip protocol with verbal orders (modifications to the protocol) from MD's. Tolerating water and voiding.
[2023-07-10 06:29] LABS: Basophils Absolute Auto 0.03 K/uL (0.00-0.30); Basophils Percent Auto 0.3 % (0.0-3.0); Eosinophils Absolute Auto 0.05 K/uL (0.00-0.50); Eosinophils Percent Auto 0.5 % (0.0-7.0); Hematocrit 36.5 % (33.0-51.0); Immature Granulocytes Abs Auto 0.06 K/uL (0.00-0.30); Immature Granulocytes Pct Auto 0.6 %; Lymphocytes Absolute Auto 2.53 K/uL (0.90-2.90); Lymphocytes Percent Auto 25.3 % (20-44); Mean Corpuscular HGB Conc 36 gm/dL (32-36); Mean Corpuscular Hemoglobin 30 pg (26-34); Mean Corpuscular Volume 83 fL (80-100); Monocytes Percent Auto 5.9 % (0.0-11.0); Neutrophils Absolute Auto 6.74 K/uL (1.7-7.0); Neutrophils Percent Auto 67.4 % (42.0-72.0); Platelet Count* 287 K/uL (140-440)
[2023-07-10 06:46] LABS: Slide Review Reflex Yes
[2023-07-10 06:49] LABS: Chloride* 110 mmol/L (96-114); Potassium* 3.3 mmol/L (3.6-5.1); Sodium* 131 mmol/L (135-149)
[2023-07-10 06:52] LABS: Creatinine* 0.4 mg/dL (0.5-1.5); Est. Creatinine Clearance* 175.97; Estimated Glomerular Filt Rate 136 ml/min
[2023-07-10 06:53] LABS: Anion Gap 8 mEq/L (7-15); Blood Urea Nitrogen* 7 mg/dL (5-24); Calcium* 7.8 mg/dL (8.4-10.6); Carbon Dioxide* 13 mmol/L (20-32); Glucose* 210 mg/dL (60-115)
[2023-07-10 06:56] LABS: C Reactive Protein* 2.4 mg/dL (0.5-1.0)
[2023-07-10 08:16] LABS: Hemoglobin A1C* 9.9 % (0-5.6)
[2023-07-10] MEDS: INSULIN NPH 100 UNIT/ML 50 UNIT SUBCUT ×2 (09:00→18:25)
[2023-07-10] MEDS: ONDANSETRON 2 MG/ML inj 4 MG IVP (11:21)
[2023-07-10] MEDS: INSULIN ASPART 100 UNIT/ML 25 UNIT SUBCUT ×2 (11:25→18:27)
[2023-07-10] MEDS: SODIUM CHLORIDE 0.9 % (FLUSH) 10 ML SYRINGE 5 ML IVF ×2 (11:27→21:08)
[2023-07-10] MEDS: INSULIN ASPART 100 UNIT/ML SUBCUT ×3 (11:27→21:06)
[2023-07-10 14:03] LABS: HCO3 VBG 15 mmol/L (21-28); PCO2 VBG 29 mmHG (40-50); PO2 VBG 51.2 mmHG (25-47); pH VBG 7.322 (7.32-7.43)
[2023-07-10 14:34] LABS: Chloride* 111 mmol/L (96-114); Sodium* 134 mmol/L (135-149)
[2023-07-10 14:35] LABS: Potassium* 3.7 mmol/L (3.6-5.1)
[2023-07-10 14:37] LABS: Anion Gap 11 mEq/L (7-15); Carbon Dioxide* 12 mmol/L (20-32); Creatinine* 0.5 mg/dL (0.5-1.5); Est. Creatinine Clearance* 140.78; Estimated Glomerular Filt Rate 129 ml/min
[2023-07-10 14:38] LABS: Blood Urea Nitrogen* 8 mg/dL (5-24); Calcium* 8.7 mg/dL (8.4-10.6); Glucose* 267 mg/dL (60-115)
--- NOTE | 2023-07-10 15:23 | P.IMPN_ITS ---
Progress Note: A&P Assessment and plan (1) DKA (diabetic ketoacidosis): Problem details: - I think she likely went into DKA from a combination of COVID illness which caused hyperglycemia and required her to use more insulin than she usually does, therefore causing her to run out of insulin early along with a financial component. Admitted to CCU for critical care management. Now transition to med surg. Transition to outpatient diabetes care plan Recommend follow-up with [facility] Status: Acute (2) COVID-19: Problem details: COVID likely started a week ago. Not a candidate for therapy. Minimally symptomatic. Most symptoms appear more likely to be due to DKA Status: Acute (3) Type 1 diabetes mellitus: Problem details: Diagnosed approximately 5 years ago. She was hospitalized at the time of diagnosis and again for DKA about 3 years ago. Has obesity with significant insulin resistance Status: Acute (4) Disorders of fluid, electrolyte, and acid-base balance: Problem details: IV insulin, IV fluids, electrolyte replacement have corrected most of her abnormalities. She still has some acidosis. Transition to outpatient therapies Status: Acute Plan Continue in-hospital for transition from critical care to outpatient therapies and then discharged to home. Time Spent With Patient Total time spent: Total time spent today is 60 minutes, 45 minutes in coordination of care and discussing with patient ongoing evaluation management of DKA and outpatient management of diabetes and need for lifelong insulin without interruption Subjective Date Seen: 07/10/23 Interval history: 32-year-old female with insulin-dependent diabetes mellitus admitted to the hospital with a 1 week history of illness. She 1st became ill about 1 week ago at that time she noted cold symptoms. She also had run out of her Novolin NPH insulin about that time. She had apparently been unable to afford it until her next paycheck. Two days prior to admission she ran out of her insulin aspart as well. She had begun to vomit and feel profoundly weak and ill. She also had headache. She was too weak to get out of bed to go to the pharmacy to get her insulin. In the emergency department she was diagnosed with DKA and started on insulin drip and IV fluids. Overnight she has had marked improvement in her overall sense of well-being and also with her abnormal laboratory studies. She is urinating. She reports no shortness of breath. She still having a headache. She still has some nausea. No further vomiting. She has been able to eat a little bit today. She reports that prior to this admission and running out of insulin she would get blood sugars between 200-300. She reports that she sees an human geography instructor in [facility], Dr. Tony Cobos. Her recent insulin regimen has been Novolin NPH 40 units in the morning and 45 units in the evening and aspart insulin about 22 units 3 or 4 times a day plus adjustment for sliding scale. Exam Narrative: Exam Narrative: She is alert appears in no distress. She gives her own history communicated through an online plant controller head is examined she has mild diffuse tenderness with palpation of her head. Eyes are normal. Pupils are normal. Extraocular movements are full. No facial asymmetry. Oropharynx with small airway. Neck is supple without mass or adenopathy. Respirations are clear to auscultation. Cardiovascular: S1, S2, regular rate and rhythm. Abdomen: Bowel sounds active. Abdomen is soft without tenderness or mass. Extremities without significant edema. Const: Vital Signs, click to edit/add: Vital Signs - 24 hr 07/09/23 15:26 07/09/23 19:56 07/09/23 21:49 Temperature 97.5 F L 98.5 F Pulse Rate [Pulse Oximeter] 113 H 118 H Respiratory Rate 20 28 H Blood Pressure [Ri ght Arm] 112/69 123/66 Pulse Oximetry 100 100 [facility] 07/09/23 22:57 07/09/23 22:58 07/09/23 23:00 Temperature 98.4 F Pulse Rate [Pulse Oximeter] 127 H Respiratory Rate 28 H 20 Blood Pressure [Ri ght Arm] 112/77 Pulse Oximetry 98 98 [facility] 07/09/23 23:00 07/09/23 23:48 07/10/23 01:13 Temperature 98.4 F Pulse Rate [Pulse Oximeter] 98 Respiratory Rate 26 H 26 H 26 H Blood Pressure [Ri ght Arm] 102/78 Pulse Oximetry 98 98 [facility] 07/10/23 01:58 07/10/23 04:00 07/10/23 04:06 Temperature 98.5 F 97.9 F Pulse Rate [Pulse Oximeter] 97 101 H Respiratory Rate 24 22 22 Blood Pressure [Ri ght Arm] 120/77 110/72 Pulse Oximetry 99 99 Oxygen Delivery Me thod Room Air Room Air 07/10/23 05:44 07/10/23 07:00 07/10/23 07:00 Temperature 97.7 F 98.2 F Pulse Rate [Pulse Oximeter] 94 82 Respiratory Rate 22 16 [facility] 103/72 104/74 Pulse Oximetry 98 97 97 Oxygen Delivery Me thod Room Air Room Air 07/10/23 07:00 07/10/23 11:00 Temperature 98.3 F Pulse Rate [Pulse Oximeter] 85 Respiratory Rate 18 Blood [facility] 119/74 Pulse Oximetry 97 97 Oxygen Delivery Me thod Room Air Room Air Documenting provider has reviewed patient's vital signs: yes Labs Labs: Laboratory Results - last 24 hr 07/09/23 07/09/23 07/09/23 15:21 16:00 16:43 WBC RBC Hgb Hct MCV MCH MCHC RDW Coeff of Shaun Plt Count Neut % (Auto) Lymph % (Auto) Gaines % (Auto) Eos % (Auto) Baso % (Auto) Neut # (Auto) Lymph # (Auto) Gaines # (Auto) Eos # (Auto) Baso # (Auto) Abs Immat Gran (auto) Imm/Tot Granulo (auto) Diff Slide Review VBG pH 7.035 L* VBG pCO2 31 L VBG pO2 38.9 VBG HCO3 8 L Sodium 135 Potassium 6.2 H* Chloride 101 Carbon Dioxide < 5 L* Anion Gap 29 H BUN 15 Creatinine 0.8 Estimated Creat Clear 87.99 Estimated GFR 101 Glucose 547 H* Hemoglobin A1c Lactate 2.6 H Calcium 9.2 Phosphorus 6.7 H* Magnesium 2.3 Troponin I C-Reactive Protein HCG, Quant Urine Color Yellow Urine Appearance Clear Urine pH 5.0 Ur Specific [place] 1.025 Urine Protein 2+ A Urine Glucose (UA) 2+ A Urine Ketones 4+ A Urine Blood 1+ A Urine Nitrite Negative Urine Bilirubin 1+ A Urine Urobilinogen 0.2 Ur Leukocyte Esterase Negative Urine RBC 0-2 Urine WBC 0-2 Urine WBC Clumps None Ur Squamous Epith Cells None Urine Bacteria Few A SARS-CoV-2 (PCR) POSITIVE SARS-CoV-2 A Influenza Type A (PCR) Negative PCR FLU A Influenza Type B (PCR) Negative PCR FLU B RSV (PCR) Negative PCR RSV Lab Acknowledgement 07/09/23 07/09/23 07/09/23 18:20 19:26 20:04 WBC RBC Hgb Hct MCV MCH MCHC RDW Coeff of Shaun Plt Count Neut % (Auto) Lymph % (Auto) Gaines % (Auto) Eos % (Auto) Baso % (Auto) Neut # (Auto) Lymph # (Auto) Gaines # (Auto) Eos # (Auto) Baso # (Auto) Abs Immat Gran (auto) Imm/Tot Granulo (auto) Diff Slide Review VBG pH 7.008 L* 7.058 L* VBG pCO2 31 L 29 L VBG pO2 30.3 31.7 VBG HCO3 8 L 8 L Sodium 141 141 Potassium 4.7 4.1 Chloride 109 111 Carbon Dioxide < 5 L* < 5 L* Anion Gap 27 H 25 H BUN 14 13 Creatinine 0.7 0.6 Estimated Creat Clear 100.55 117.31 Estimated GFR 119 123 Glucose 320 H 142 H Hemoglobin A1c Lactate 2.8 H 2.3 H Calcium 9.1 8.4 Phosphorus 5.1 H Magnesium 2.2 Troponin I < 0.01 L C-Reactive Protein HCG, Quant < 2.39 Urine Color Urine Appearance Urine pH Ur Specific [place] Urine Protein Urine Glucose (UA) Urine Ketones Urine Blood Urine Nitrite Urine Bilirubin Urine Urobilinogen Ur Leukocyte Esterase Urine RBC Urine WBC Urine WBC Clumps Ur Squamous Epith Cells Urine Bacteria SARS-CoV-2 (PCR) Influenza Type A (PCR) Influenza Type B (PCR) RSV (PCR) Lab Acknowledgement Test Added 07/09/23 07/10/23 07/10/23 22:05 00:40 06:12 WBC 10.00 RBC 4.40 Hgb 13.0 Hct 36.5 MCV 83 MCH 30 MCHC 36 RDW Coeff of Shaun 13.0 Plt Count 287 Neut % (Auto) 67.4 Lymph % (Auto) 25.3 Gaines % (Auto) 5.9 Eos % (Auto) 0.5 Baso % (Auto) 0.3 Neut # (Auto) 6.74 Lymph # (Auto) 2.53 Gaines # (Auto) 0.60 Eos # (Auto) 0.05 Baso # (Auto) 0.03 Abs Immat Gran (auto) 0.06 Imm/Tot Granulo (auto) 0.6 Diff Slide Review Cancelled VBG pH 7.221 L* 7.237 L* VBG pCO2 22 L 28 L VBG pO2 75.3 H 62.1 H VBG HCO3 9 L 12 L Sodium 135 129 L 131 L Potassium 4.1 4.1 3.3 L Chloride 111 108 110 Carbon Dioxide 6 L* 9 L* 13 L Anion Gap 18 H 12 8 BUN 11 10 7 Creatinine 0.5 0.4 L 0.4 L Estimated Creat Clear 140.78 175.97 175.97 Estimated GFR 129 136 136 Glucose 110 250 H 210 H Hemoglobin A1c 9.9 H Lactate 1.2 Calcium 7.7 L 7.5 L 7.8 L Phosphorus Magnesium Troponin I C-Reactive Protein 2.4 H HCG, Quant Urine Color Urine Appearance Urine pH Ur Specific [place] Urine Protein Urine Glucose (UA) Urine Ketones Urine Blood Urine Nitrite Urine Bilirubin Urine Urobilinogen Ur Leukocyte Esterase Urine RBC Urine WBC Urine WBC Clumps Ur Squamous Epith Cells Urine Bacteria SARS-CoV-2 (PCR) Influenza Type A (PCR) Influenza Type B (PCR) RSV (PCR) Lab Acknowledgement 07/10/23 07/10/23 07:42 13:58 WBC RBC Hgb Hct MCV MCH MCHC RDW Coeff of Shaun Plt Count Neut % (Auto) Lymph % (Auto) Gaines % (Auto) Eos % (Auto) Baso % (Auto) Neut # (Auto) Lymph # (Auto) Gaines # (Auto) Eos # (Auto) Baso # (Auto) Abs Immat Gran (auto) Imm/Tot Granulo (auto) Diff Slide Review VBG pH 7.322 VBG pCO2 29 L VBG pO2 51.2 H VBG HCO3 15 L Sodium 134 L Potassium 3.7 Chloride 111 Carbon Dioxide 12 L Anion Gap 11 BUN 8 Creatinine 0.5 Estimated Creat Clear 140.78 Estimated GFR 129 Glucose 267 H Hemoglobin A1c Lactate Calcium 8.7 Phosphorus Magnesium Troponin I C-Reactive Protein HCG, Quant Urine Color Urine Appearance Urine pH Ur Specific [place] Urine Protein Urine Glucose (UA) Urine Ketones Urine Blood Urine Nitrite Urine Bilirubin Urine Urobilinogen Ur Leukocyte Esterase Urine RBC Urine WBC Urine WBC Clumps Ur Squamous Epith Cells Urine Bacteria SARS-CoV-2 (PCR) Influenza Type A (PCR) Influenza Type B (PCR) RSV (PCR) Lab Acknowledgement Test Added
--- NOTE | 2023-07-10 19:14 | PC.NURSE ---
shift note: insulin gtt dc'd this a.m. pt up indept in room. pt medicated for SMALL with relief. LS clr. sats 97% RA. pt denies sob. pt nauseated this a.m and received zofran prn with relief. pt ate full evening meal. interpeter used this a.m for assessment and poc. Pt refused planograph operator for blood sugars and meds. IV to Rt FA dc'd intact.
[2023-07-10] MEDS: ENOXAPARIN 40 MG/0.4 ML INJ SUBCUT (21:07)
[2023-07-11] VITALS (9 sets, daily range): BP systolic 120–146; BP diastolic 68–101; PULSE 81–88; RESP 16–20; TEMP 36.2–36.9; O2SAT 96–100
[2023-07-11] MEDS: 5 % DEX/0.9 SOD CHL+KCL 20 mEq 1,000 ML 150 ML IV ×2 (00:53→07:31)
[2023-07-11] MEDS: INSULIN ASPART 100 UNIT/ML SUBCUT ×4 (02:16→21:00)
--- NOTE | 2023-07-11 05:39 | PC.NURSE ---
[id number]: Patient pleasant and cooperative with cares. Verbalizes feeling better. Independent in room. Denies pain. Afebrile. Appeared to rest well during noc.
[2023-07-11] MEDS: ACETAMINOPHEN 325 MG TABLET 650 MG PO (06:16)
[2023-07-11 06:39] LABS: HCO3 VBG 20 mmol/L (21-28); PCO2 VBG 37 mmHG (40-50); pH VBG 7.348 (7.32-7.43)
[2023-07-11 07:17] LABS: Chloride* 112 mmol/L (96-114); Potassium* 3.7 mmol/L (3.6-5.1); Sodium* 139 mmol/L (135-149)
[2023-07-11 07:20] LABS: Anion Gap 9 mEq/L (7-15); Blood Urea Nitrogen* 6 mg/dL (5-24); Carbon Dioxide* 18 mmol/L (20-32); Creatinine* 0.4 mg/dL (0.5-1.5); Est. Creatinine Clearance* 175.97; Estimated Glomerular Filt Rate 136 ml/min
[2023-07-11 07:21] LABS: Calcium* 8.2 mg/dL (8.4-10.6); Glucose* 200 mg/dL (60-115); Magnesium* 1.6 mg/dL (1.5-2.6)
[2023-07-11] MEDS: INSULIN ASPART 100 UNIT/ML 35 UNIT SUBCUT ×2 (10:03→14:00)
[2023-07-11] MEDS: INSULIN NPH 100 UNIT/ML 50 UNIT SUBCUT ×2 (10:04→18:25)
[2023-07-11] MEDS: MAGNESIUM OXIDE 400 MG TABLET PO ×2 (10:05→20:59)
--- NOTE | 2023-07-11 13:41 | P.IMPN_ITS ---
Progress Note: A&P Assessment and plan (1) DKA (diabetic ketoacidosis): Problem details: Primary cause is running out of insulin due to financial concerns. Additional concerns include poor diabetic control prior to admission with a hemoglobin A1c of 9.9 and poor medical follow-up with her electric meter repairer. Status: Acute (2) COVID-19: Problem details: COVID likely started a week ago. Not a candidate for therapy. Minimally symptomatic. Most symptoms appear more likely to be due to DKA Status: Acute (3) Type 1 diabetes mellitus: Problem details: Diagnosed approximately 5 years ago. She was hospitalized at the time of diagnosis and again for DKA about 3 years ago. Has obesity with significant insulin resistance Status: Acute (4) Disorders of fluid, electrolyte, and acid-base balance: Problem details: IV insulin, IV fluids, electrolyte replacement have corrected most of her abnormalities. She still has some acidosis. Transition to outpatient therapies Status: Acute Plan Continue in-hospital to optimize her outpatient regimen and to develop a plan for her to get insulin and outpatient medical care going forward Time Spent With Patient Total time spent: Total time spent today is 45 minutes, 35 minutes in coordination of care discus sing with patient ongoing management of type 1 diabetes Subjective Date Seen: 07/11/23 Interval history: 32-year-old female with insulin-dependent diabetes mellitus admitted to the hospital with a 1 week history of illness. She 1st became ill about 1 week ago at that time she noted cold symptoms. She also had run out of her Novolin NPH insulin about that time. She had apparently been unable to afford it until her next paycheck. Two days prior to admission she ran out of her insulin aspart as well. She had begun to vomit and feel profoundly weak and ill. She also had headache. She was too weak to get out of bed to go to the pharmacy to get her insulin. In the emergency department she was diagnosed with DKA and started on insulin drip and IV fluids. Overnight she has had marked improvement in her overall sense of well-being and also with her abnormal laboratory studies. She is urin ating. She reports no shortness of breath. She still having a headache. She still has some nausea. No further vomiting. She has been able to eat a little bit today. She reports that prior to this admission and running out of insulin she would get blood sugars between 200-300. She reports that she sees an electric meter repairer in [facility], Dr. Tony Cobos. Her recent insulin regimen has been Novolin NPH 40 units in the morning and 45 units in the evening and aspart insulin about 22 units 3 or 4 times a day plus adjustment for sliding scale. Overnight she is reporting feeling much better. Her headache is resolved. She has a slight sore throat and rhinorrhea but no other respiratory illness symptoms. No shortness of breath or cough. No fever. Blood sugars have impr macario though still remain above 200 for the most part. She is anxious to go home. She tells me she currently does not have a prescription for insulin and does not have money to pay for insulin. I discussed with her the the need for her to keep taking insulin. Running out of insulin as a life-threatening problem for her. Exam Narrative: Exam Narrative: She is alert and appears in no distress. Respirations are clear to auscultation. Breathing is unlabored. Cardiovascular: S1, S2, regular rate and rhythm. Abdomen is soft without tenderness or mass. Extremities without significant edema. Const: Vital Signs, click to edit/add: Vital Signs - 24 hr 07/10/23 15:00 07/10/23 15:00 07/10/23 15:00 Temperature 98.4 F Pulse Rate [Pulse Oximeter] 86 Respiratory Rate 16 18 Blood Pressure [Ri ght Arm] 112/68 Pulse Oximetry 98 97 97 [facility] 07/10/23 20:46 07/10/23 22:42 07/10/23 23:00 Temperature 97.5 F L 98.1 F Pulse Rate [Pulse Oximeter] 102 H 95 Respiratory Rate 20 20 Blood Pressure [Ri ght Arm] 133/82 107/70 Pulse Oximetry 99 96 96 Oxygen Delivery Ca thod Room Air Room Air 07/10/23 23:00 07/11/23 02:19 07/11/23 07:00 Temperature 98.4 F 98.3 F Pulse Rate [Pulse Oximeter] 87 85 Respiratory Rate 20 20 18 Blood Pressure [Ri ght Arm] 120/77 143/101 H Pulse Oximetry 96 98 100 [facility] Room Air 07/11/23 07:30 07/11/23 07:30 07/11/23 11:00 Temperature 98.5 F Pulse Rate [Pulse Oximeter] 88 Respiratory Rate 16 18 Blood Pressure [Ri ght Arm] 135/96 H Pulse Oximetry 100 100 96 Oxygen Delivery Me thod Room Air Room Air Documenting provider has reviewed patient's vital signs: yes Labs Labs: Laboratory Results - last 24 hr 07/10/23 07/11/23 13:58 05:40 VBG pH 7.322 7.348 VBG pCO2 29 L 37 L VBG pO2 51.2 H 75.0 H VBG HCO3 15 L 20 L Sodium 134 L 139 Potassium 3.7 3.7 Chloride 111 112 Carbon Dioxide 12 L 18 L Anion Gap 11 9 BUN 8 6 Creatinine 0.5 0.4 L Estimated Creat Clear 140.78 175.97 Estimated GFR 129 136 Glucose 267 H 200 H Calcium 8.7 8.2 L Phosphorus 2.0 L Magnesium 1.6 TSH 5.610 H
--- NOTE | 2023-07-11 18:43 | PC.NURSE ---
shift note: BS this arnaldo @ 1700=68; pt received 1 4oz glass of OJ with packet of sugar. Rechecked BS within 20 mins= 80. Pt asymptomatic of low BS. Pt ate full meal of tuna salad sandwich,jello, mac & cheese. Dr. Villa notified. adjustment to novolog to 30 units scheduled done. 50 units NPH given @1830
[2023-07-11] MEDS: ENOXAPARIN 40 MG/0.4 ML INJ SUBCUT (21:00)
[2023-07-11] MEDS: SODIUM CHLORIDE 0.9 % (FLUSH) 10 ML SYRINGE 5 ML IVF (21:01)
[2023-07-12 02:10] VITALS: BP 144/91; PULSE 97; RESP 18; TEMP 36.7; O2SAT 98
--- NOTE | 2023-07-12 05:47 | PC.NURSE ---
[id number]: Patient showered before bed. Independent. Pleasant and friendly. Denies pain. Awaiting D/C today.
[2023-07-12] MEDS: ACETAMINOPHEN 325 MG TABLET 650 MG PO (06:17)
[2023-07-12 07:11] LABS: Chloride* 105 mmol/L (96-114); Sodium* 138 mmol/L (135-149)
[2023-07-12 07:14] LABS: Anion Gap 7 mEq/L (7-15); Blood Urea Nitrogen* 7 mg/dL (5-24); Carbon Dioxide* 26 mmol/L (20-32); Creatinine* 0.4 mg/dL (0.5-1.5); Est. Creatinine Clearance* 174.36; Estimated Glomerular Filt Rate 135 ml/min
[2023-07-12 07:15] LABS: Calcium* 8.3 mg/dL (8.4-10.6); Glucose* 112 mg/dL (60-115)
[2023-07-12 08:32] VITALS: BP 136/91; PULSE 76; RESP 18; TEMP 36.4; O2SAT 99
[2023-07-12] MEDS: POTASSIUM BICARB 25 MEQ EFFERVESCENT TAB 50 MEQ PO (08:36)
[2023-07-12] MEDS: MAGNESIUM OXIDE 400 MG TABLET PO (08:37)
[2023-07-12] MEDS: SODIUM CHLORIDE 0.9 % (FLUSH) 10 ML SYRINGE 5 ML IVF (08:38)
[2023-07-12] MEDS: INSULIN ASPART 100 UNIT/ML 30 UNIT SUBCUT (08:39)
[2023-07-12] MEDS: INSULIN NPH 100 UNIT/ML 50 UNIT SUBCUT (08:41)
--- NOTE | 2023-07-12 12:47 | PM.DS1 ---
DS: Providers Provider Date Seen: 07/12/23 Date of admission: 07/09/23 17:39 Primary care physician: Olivia Dubose DO Admitting Clinician: Norma Villa MD Attending Physician on discharge: Prosper Bishop MD Date of Discharge: 07/12/23 DS: Diagnosis Discharge Diagnosis (1) DKA (diabetic ketoacidosis): Status: Acute Problem details: Primary cause is running out of insulin due to financial concerns. 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 (2) COVID-19: Status: Acute Problem details: COVID likely started a week ago. Not a candidate for therapy. Minimally symptomatic. Most symptoms appear more likely to be due to DKA (3) Type 1 diabetes mellitus: Status: Acute Problem details: Diagnosed approximately 5 years ago. She was hospitalized at the time of diagnosis and again for DKA about 3 years ago. Has obesity with significant insulin resistance DS: Summary Hospital Course Hospital Course: 32-year-old female with insulin-dependent diabetes mellitus admitted to the hospital with a 1 week history of illness. She 1st became ill about 1 week ago at that time she noted cold symptoms. She also had run out of her Novolin NPH insulin about that time. She had apparently been unable to afford it until her next paycheck. Two days prior to admission she ran out of her insulin aspart as well. She had begun to vomit and feel profoundly weak and ill. She also had headache. She was too weak to get out of bed to go to the pharmacy to get her insulin. In the emergency department she was diagnosed with DKA and started on insulin drip and IV fluids. Overnight she has had marked improvement in her overall sense of well-being and also with her abnormal laboratory studies. She is urinating. She reports no shortness of breath. She still having a headache. She still has some nausea. No further vomiting. She reports that prior to this admission and running out of insulin she would get blood sugars between 200-300. She reports that she sees an auto transmission technician in [facility], Dr. Tony Cobos. Unknown when she was last seen for outpatient diabetes management. Her recent insulin regimen has been Novolin NPH 40 units in the morning and 45 units in the evening and aspart insulin about 22 units 3 or 4 times a day plus adjustment for sliding scale. In the past 2 days her respiratory symptoms have resolved, her headache has largely resolved, she is eating a normal diet and otherwise feeling much better. Time Spent with Patient Time attestation: Total time spent providing and/or coordinating discharge services: Time spent: Greater than 30 minutes Exam Narrative: Exam Narrative: She is alert and appears in no distress. Breathing is unlabored. Respirations are clear to auscultation. Cardiovascular: S1, S2, regular rate and rhythm. Abdomen is soft without tenderness. Const: Vital Signs, click to edit/add: Vital Signs - 24 hr 07/11/23 15:00 07/11/23 15:00 07/11/23 15:00 Temperature Pulse Rate [Pulse Oximeter] 88 Respiratory Rate 18 18 Blood Pressure [Ri ght Arm] Pulse Oximetry 100 100 Oxygen Delivery Me thod Room Air 07/11/23 15:00 07/11/23 19:52 07/11/23 21:56 Temperature 98.3 F 97.8 F Pulse Rate [Pulse Oximeter] 87 Respiratory Rate 18 20 20 Blood Pressure [Ri ght Arm] 137/68 137/96 H Pulse Oximetry 100 99 99 Oxygen Delivery Me thod Room Air Room Air Room Air 07/11/23 21:57 07/11/23 22:44 07/12/23 02:10 Temperature 97.1 F L 98.1 F Pulse Rate [Pulse Oximeter] 81 97 Respiratory Rate 20 18 Blood Pressure [Ri ght Arm] 146/96 H 144/91 H Pulse Oximetry 99 99 98 Oxygen Delivery Me thod Room Air Room Air 07/12/23 08:32 07/12/23 08:32 07/12/23 08:32 Temperature 97.5 F L Pulse Rate [Pulse Oximeter] 76 Respiratory Rate 18 Blood Pressure [Ri ght Arm] 136/91 H Pulse Oximetry 99 99 99 Oxygen Delivery Me thod Room Air Room Air Documenting provider has reviewed patient's vital signs: yes DS: Data Data Completed and Pending Labs on day of discharge: Labs from last 24 hours 07/12/23 06:09 Sodium 138 Potassium 3.0 L Chloride 105 Carbon Dioxide 26 Anion Gap 7 BUN 7 Creatinine 0.4 L Estimated Creat Clear 174.36 Estimated GFR 135 Glucose 112 Calcium 8.3 L Preliminary micro results at discharge 07/09/23 16:14 Blood Culture - Preliminary Blood NO GROWTH AFTER 48 HOURS 07/09/23 16:00 Blood Culture - Preliminary Blood NO GROWTH AFTER 48 HOURS Discharge Plan Discharge Disposition: Home, Self-Care Date of Admission: 07/09/23 17:39 Attending Provider on Discharge: Reza Bishop Primary Care Provider: Olivia Dubose Condition: Guarded Anticipated Discharge Date/Time: 07/12/23 10:00 Discharge Medications: New insulin lispro 100 unit/mL insulin pen 30 unit subcut TIDWM Qty: 30 2RF Novolin N NPH U-100 Insulin 100 unit/mL suspension 45 unit subcut BID Qty: 30 2RF Discontinued Humulin N NPH U-100 Insulin 100 unit/mL suspension 38 - 42 unit subcut BID Patient Comments: 38 Units AM dose 42 Units PM dose insulin aspart U-100 100 unit/mL cartridge 14 unit subcut TID Patient Comments: 14 units + sliding scale adjustment TID Discharge Orders: Discharge Order (Routine); Ordered 07/12/23 Ordered By: Reza Bishop Patient Education: Insulin NPH (By injection), Insulin Glargine (By injection), Diabetic Ketoacidosis (DC), Managing Diabetes During Sick Days (DC), COVID-19 (Coronavirus Disease 2019) (DC), COVID-19 and Chronic Health Conditions (DC), COVID-19: Slow the Coronavirus Spread (DC) Additional Instructions: [facility] [phone] for an appointment as soon as possible to follow-up diabetes. Activity Level: Activity as Tolerated Discharge Diet: Diabetic Follow Up Appointments: Olivia Dubose DO [Primary Care Provider] - Forms: [facility] Info Instructions
--- NOTE | 2023-07-12 12:47 | PC.SOCIAL ---
Phone call to pt using language interpreter services through [employer] ([phone]). Discussed [facility] with pt and how to obtain medication prescriptions. Pt is familiar with [facility] and informs that pt's nurse provided information. Pt will make an appointment with [facility]. Pt wonders how much of her hospital bill will be covered by insurance. Informed pt that she can contact her insurance to see what is covered. Pt will receive a billing statement in the mail after insurance has been billed. If pt has questions she can contact [facility] billing department. Pt wonders if she is able to set a payment plan. Informed pt that she can reach out to billing department and make that request. At this time it is unknown to this worker what amount pt's insurance will cover. Pt does not have any further questions. Informed pt if she has further questions she can reach out to the social work department. Social work will follow up as needed.
== END 2023-07-12 12:51 | disposition home or self-care (01) | DRG 420 ==
LOC: ED 16:36 → MEDSURG 21:05
PROVIDERS: Family Medicine; Admitting Provider Family Medicine; Emergency Provider Emergency Medicine; PCP Family Medicine; Visit Provider Family Medicine
DX: E10.10 Type 1 diabetes mellitus with ketoacidosis without coma (principal); U07.1 COVID-19; Z79.4 Long term (current) use of insulin; T38.3X6A Underdosing of insulin and oral hypoglycemic [antidiabetic] drugs, initial encounter; Z91.120 Patient's intentional underdosing of medication regimen due to financial hardship; Z59.86 Financial insecurity; Z91.141 Patient's other noncompliance with medication regimen due to financial hardship; E86.0 Dehydration; E86.1 Hypovolemia; E87.5 Hyperkalemia; R00.0 Tachycardia, unspecified
CPT/HCPCS: 36415; 71045; 80048; 81001; 82803; 82962; 83036; 83605; 83735; 84100; 84443; 84484; 84702; 85025; 86140; 87040; 87086; 87631; 93005; 94761; 99285; 99291; T1013; A9270; J1650; J2405; J3590; J7030; J7120